=== PATIENT | male | born 1950 | race Caucasian/White ===

== ENCOUNTER 2020-05-09 02:43 | Inpatient (IN) ==
[2020-05-09 03:31] LABS: Basophils # (auto) 0.03 K/uL (0-0.2); Basophils % (auto) 0.3 %; Eosinophils % (auto) 1.1 %; Hematocrit (blood only) 42.9 % (42-52); Hemoglobin 15.3 g/dL (14.0-18.0); Immature Granulocytes # (auto) 0.03 K/uL (0.00-0.02); Immature Granulocytes % (auto) 0.3 %; Lymphocytes # (auto) 1.42 K/uL (1.2-3.4); Mean Corpuscular Hemoglobin 30.2 pg (25-34); Mean Corpuscular Hgb Conc 35.7 g/dL (32-36); Mean Corpuscular Volume 84.6 fL (80-100); Mean Platelet Volume 10.8 fL (7.4-10.4); Monocytes # (auto) 1.09 K/uL (0.11-0.59); Monocytes % (auto) 12.2 %; Neutrophils # (auto) 6.23 K/uL (1.4-6.5); Neutrophils % (auto) 70.1 %; Platelet Count 248 K/uL (130-400); RDW Coefficient of Variation 14.3 % (11.5-14.5); RDW Standard Deviation 44.1 fL (36.4-46.3); Red Blood Count 5.07 M/uL (4.7-6.1)
[2020-05-09] MEDS ORDERED: ONDANSETRON INJ 2 MG/ML 2 ML VIAL ONE (03:33)
[2020-05-09] MEDS ORDERED: fentaNYL citrate 100 MCG/2 ML VIAL ONE ×2 (03:33→03:42)
[2020-05-09 03:38] LABS: Alanine Aminotransferase 28 U/L (12-78); Albumin Level 4.2 gm/dl (3.4-5.0); Aspartate Aminotransferase 24 U/L (15-37); BUN Creatinine Ratio 13.7 (10-20); Blood Urea Nitrogen 15 mg/dl (7-18); Calcium 9.3 mg/dl (8.5-10.1); Carbon Dioxide 19 mmol/L (21-32); Chloride 105 mmol/L (98-107); Est GFR (African American) 77.3; Est GFR (Non-African American) 66.7; Glucose 141 mg/dl (70-99); Lipase 79 U/L (73-393); Potassium 3.8 mmol/L (3.5-5.1); Sodium 135 mmol/L (136-145)
[2020-05-09 03:41] LABS: Alkaline Phosphatase 117 U/L (45-117); Bilirubin,Total 0.9 mg/dl (0.2-1); Globulin 4.4 gm/dl (2.5-4.0); Total Protein 8.6 gm/dl (6.4-8.2)
[2020-05-09] MEDS ORDERED: MoRPHine SULFATE 4 MG/ML 1 ML CARP\\VIAL ONE (03:47)
[2020-05-09] MEDS ORDERED: MoRPHine SULFATE 4 MG/ML 1 ML CARP\\VIAL IV STA (03:57)
[2020-05-09] MEDS ORDERED: OPTIRAY 320 125ml IV ONE (03:57)
[2020-05-09] MEDS ORDERED: LORazepam 2 MG/4 ML VIAL ONE (04:20)
--- NOTE | 2020-05-09 05:07 | History & Physical Report ---
Date of Service May 09, 2020 Assessment & Plan (1) HTN (hypertension): Hypertensive urgency secondary to abdominal pain from AAA impending rupture on CT read Medication noncompliance chronic systolic heart failure secondary to ischemic cardiomyopathy (EF 40 to 45%, TTE 2000), patient euvolemic hx CAD status post stent hyperlipidemia as per records past tobacco abuse. Medical telemetry given blood pressure concerns Reinitiate beta-sydnie tx Analgesia Patient declines intervention for impending rupture of AAA. He desires to transition to home hospice once pain is controlled. Patient to transition to comfort measures if AAA ruptures inpatient. Social service RE discharge planning DVT prophylaxis. TEDS (SCDs contraindicated with PAD, pharmacologic anticoagulation contraindicated with AAA impending rupture) Full code Text document was generated using [employer] voice recognition software. It may contain grammatical or spelling errors. Kindly contact undersigned for clarification of any documentation item in question. History of Present Illness Chief Complaint: Abdominal pain Primary Care Provider: Anali Zhong History obtained from patient and records. Medical history significant for chronic systolic heart failure secondary to ischemic cardiomyopathy (EF 40 to 45%, TTE 2000), CAD status post stent, AAA, hyperlipidemia, medication noncompliance, past tobacco abuse. Patient evaluated by [facility] vascular surgeron last year for AAA. Elective surgery recommended at that time for AAA measuring about 5.6 cm as per patient. Patient declined surgery due to fear of complications from vascular procedure which he saw his mother suffer through. 1 week history of achy lower abdominal pain with some nausea, no emesis. No constipation or diarrhea. Patient drove himself to the ER with worsening discomfort. SBP upon arrival at the ER 180s. AAA concerning for impending rupture on initial CT read. Patient declined transfer to [facility] for surgical management pending discussion ER provider. Patient aware that he can anytime from precarious condition. 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 Allergies Allergy/AdvReac Type Severity Reaction Status Date / Time No Known Allergies Allergy Verified 10/22/02 17:44 Home Medications Home Medications Medication Instructions Recorded Confirmed Type No Known Home Medications 05/09/20 05/09/20 History Past Med/Surg History Social History Feels Safe at Home: Yes Review of Systems Review of Systems: As per HPI, all 10 systems reviewed, all other ROS negative Physical Exam Physical Exam: GENERAL: Slightly uncomfortable, pleasant no respiratory distress SKIN: Normal color, warm HEENT: [place] palpebral conjunctivae, no ptosis, dry buccal mucosa NECK : Supple, no tenderness CHEST : Decreased breath sounds , no tenderness HEART : RRR, no obvious murmurs ABDOMEN: Some distention, marked hypogastric tenderness EXTREMITIES : Minimal LE swelling, no LE tenderness, no other conspicuous deformities noted NEUROLOGIC : Coherent, no facial asymmetry, no other gross focality Results & Data Results & Data ([facility]) Vital Signs (Past 12 Hours) Vital Signs Temp Pulse Resp BP BP BP Pulse Ox 05/09/20 04:57 86 L 05/09/20 04:45 80 24 145/106 H 90 05/09/20 04:30 82 145/98 H 96 05/09/20 04:28 80 155/109 H 97 05/09/20 04:19 82 160/123 H 99 05/09/20 04:00 77 32 H 158/109 H 98 05/09/20 03:50 88 30 H 172/109 H 99 05/09/20 03:47 90 32 H 172/117 H 99 05/09/20 03:41 85 186/121 H 100 05/09/20 03:21 122/81 106/81 05/09/20 02:49 36.5 C 78 22 151/112 H 95 Laboratory Results Laboratory Results WBC 8.90 K/uL (4.8-10.8) 05/09/20 03:10 RBC 5.07 M/uL (4.7-6.1) 05/09/20 03:10 Hgb 15.3 g/dL (14.0-18.0) 05/09/20 03:10 Hct 42.9 % (42-52) 05/09/20 03:10 MCV 84.6 fL (80-100) 05/09/20 03:10 MCH 30.2 pg (25-34) 05/09/20 03:10 MCHC 35.7 g/dL (32-36) 05/09/20 03:10 RDW Std Deviation 44.1 fL (36.4-46.3) 05/09/20 03:10 RDW Coeff of Arcenio 14.3 % (11.5-14.5) 05/09/20 03:10 Plt Count 248 K/uL (130-400) 05/09/20 03:10 MPV 10.8 fL (7.4-10.4) H 05/09/20 03:10 Immature Gran % (Auto) 0.3 % 05/09/20 03:10 Neut % (Auto) 70.1 % 05/09/20 03:10 Lymph % (Auto) 16.0 % 05/09/20 03:10 Burke % (Auto) 12.2 % 05/09/20 03:10 Eos % (Auto) 1.1 % 05/09/20 03:10 Baso % (Auto) 0.3 % 05/09/20 03:10 Neut # (Auto) 6.23 K/uL (1.4-6.5) 05/09/20 03:10 Lymph # (Auto) 1.42 K/uL (1.2-3.4) 05/09/20 03:10 Burke # (Auto) 1.09 K/uL (0.11-0.59) H 05/09/20 03:10 Eos # (Auto) 0.10 K/uL (0-0.5) 05/09/20 03:10 Baso # (Auto) 0.03 K/uL (0-0.2) 05/09/20 03:10 Immature Gran # (Auto) 0.03 K/uL (0.00-0.02) H 05/09/20 03:10 Sodium 135 mmol/L (136-145) L 05/09/20 03:10 Potassium 3.8 mmol/L (3.5-5.1) 05/09/20 03:10 Chloride 105 mmol/L (98-107) 05/09/20 03:10 Carbon Dioxide 19 mmol/L (21-32) L 05/09/20 03:10 Anion Gap 11.0 (3-11) 05/09/20 03:10 BUN 15 mg/dl (7-18) 05/09/20 03:10 Creatinine 1.12 mg/dl (0.6-1.4) 05/09/20 03:10 Est Cr Clr Drug Dosing Not Reportable 05/09/20 03:10 Est GFR ( Amer) 77.3 05/09/20 03:10 Est GFR (Non-Af Amer) 66.7 05/09/20 03:10 BUN/Creatinine Ratio 13.7 (10-20) 05/09/20 03:10 Glucose 141 mg/dl (70-99) H 05/09/20 03:10 Calcium 9.3 mg/dl (8.5-10.1) 05/09/20 03:10 Total Bilirubin 0.9 mg/dl (0.2-1) 05/09/20 03:10 AST 24 U/L (15-37) 05/09/20 03:10 ALT 28 U/L (12-78) 05/09/20 03:10 Alkaline Phosphatase 117 U/L (45-117) 05/09/20 03:10 Total Protein 8.6 gm/dl (6.4-8.2) H 05/09/20 03:10 Albumin 4.2 gm/dl (3.4-5.0) 05/09/20 03:10 Globulin 4.4 gm/dl (2.5-4.0) H 05/09/20 03:10 Albumin/Globulin Ratio 1.0 (0.9-2) 05/09/20 03:10 Lipase 79 U/L (73-393) 05/09/20 03:[address] chest initial read: Thyroid nodule, ascending aorta measuring 5.4 cm, descending thoracic aorta caliber 2.9 cm. No central pulmonary embolism. Mild to moderate coronary calcification. Emphysema. Atelectasis. CT abdomen pelvis initial read: Abdominal aortic aneurysm measuring up to 9.8 cm with adjacent fat stranding concerning for impending rupture. No active extrava sation at this time. Aneurysmal dilatation of bilateral common iliac arteries and bilateral common femoral arteries. Solid organs are unremarkable. No bowel obstruction. EKG as per my interpretation rate 75, LAD, LAFB, RBBB, T wave flattening inferior leads
--- NOTE | 2020-05-09 05:45 | Emergency Department Note ---
Impression & Plan AAA (abdominal aortic aneurysm) ED Provider Note NAME: ARTHUR WEIGHT AGE: 69 SEX: M ARRIVES VIA: Walk-In INFORMANT: [Patient] ED PROVIDER(S): Sarah Pace DO CHIEF COMPLAINT: Severe abdominal pain PLAN: Disposition: Admitted to the [facility] service Condition: Critical MEDICAL DECISION MAKING: This is a 69-year-old male patient who presents to the emergency department with severe abdominal pain. Patient was diagnosed with a significantly enlarged abdominal aortic aneurysm with impending rupture. The patient chose to not pursue any further care and requested comfort measures only. The case was discussed with vascular surgery at [facility] in [place] and the patient was u ltimately admitted here to the [facility] service at [facility]. Triage Nursing notes reviewed and agree them [Prior medical records reviewed] from [facility] Vital Signs: reviewed and remarkable for hypertension Differential diagnosis: Aortic rupture, aortic dissection, small bowel obstruction, pancreatitis, ischemic bowel ER treatment provided: IV normal saline bolus IV Zofran IV fentanyl IV morphine IV Ativan Diagnostics interpreted by me: ECG: Normal sinus rhythm at a rate of 75. There is no ST segment elevation or signs of ischemia. There is no ectopy to be Cardiac Monitoring: Normal sinus rhythm at a rate of 75 Laboratory studies: [See below] Imaging studies: As per stat rad CT chest abdomen pelvis: Abdominal aortic aneurysm measuring up to 9.8 cm and there is adjacent fat stranding, concerning for impending rupture. No active extravasation at this t apol[place]. There is also aneurysmal dilatation of bilateral common iliac arteries and bilateral common femoral arteries. No free air or free fluid. No bowel obstruction. Solid organs are unremarkable. Multilevel degenerative changes of lumbar spine. CT a abdomen and pelvis: 1 cm left anterior inferior thyroid low-density nodule. Prominent caliber of the a sending aorta measuring 5.4 cm. Ascending thoracic aortic caliber 2.9 cm. Negative for central pulmonary embolism distal branches are less well opacified. Mild/moderate coronary artery calcification. Mild right greater than left upper lungs, superior segment left lower lung subpleural and centrilobular type emphysema. Mild right basilar atelectasis. Negative for any significant or suspicious lung nodule. Upper abdomen no focal finding negative for hypervascular hepatic lesion Consultation(s): Dr. Funk-vascular surgery [facility] Dr. Sandhu-emergency medicine [facility] Dr. Zamarripa-radiology [facility] HPI: 69/M arrives for evaluation of severe mid abdominal pain. The patient describes developing severe mid abdominal pain earlier in the day. He states that he stayed at home and try to tolerate the pain but it became unbearable and he drove himself to the emergency department. The patient has a known abdominal aneurysm that he chose not to have electively repaired. He states that he could not stand the mid abdominal pain that radiated through to his back anymore and he drove himself here for pain management. ROS: See above HPI for pertinent positives & negatives. A total of [10] systems reviewed and were otherwise negative. 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 Extraocular eye muscles are intact, and sclera are anicteric. Nose - moist nasal mucosa without discharge. Mouth - moist buccal mucosa. Oropharynx is nonerythematous and there is no tonsillar exudate or edema noted. Neck: Supple; no cervical lymphadenopathy or JVD Heart: Regular rate and rhythm. There is a normal S1 and S2 with no murmurs, clicks, or gallops appreciated. Lungs: Clear to auscultation bilaterally with no wheezes, rales, or rhonchi. Abdomen: The patient has an acute abdomen that is distended with an easily palpable abdominal aortic aneurysm in the mid abdomen. Extremities: No evidence of cyanosis, clubbing, or edema. There are easily palpable peripheral pulses. Skin: Pale, warm and diaphoretic with good turgor and no rashes. ED COURSE: Times/Reassessments: The patient was evaluated initially in room C9. Upon entering the room, the patient seemed to have an altered mental status and was unable to answer my questions. He was pale and diaphoretic and I immediately laid him back in the bed. Nursing staff was establishing an IV and attaching the patient to monitor. He had a liter of saline attached to both IV lines and he went emergently to CT scan. I was concerned for a ruptured aortic aneurysm and [facility] was placed on standby to provide emergent transport to a tertiary care center where he could have vascular repair. Initially, I discussed the case with Dr. Sandhu in the emergency department in [facility] and told him of my suspicions and he accepted the patient in transfer. I accompanied the patient to the CAT scanner where his IV line blew and emergency department staff were able to establish a second IV line so that they could have a contrasted CAT scan. The patient became more coherent in CAT scan and told staff that he did not wish to have any surgical interventions performed. When he returned to the emergency department, he went to room B1. I had a more meaningful conversation with the patient at that time. He told me that he did not wish to have surgical repair of this expanding abdominal aortic aneurysm because his mother had the same AAA repair which resulted in a stroke. He did not wish to live the same quality of life. I explained to the patient that he may not suffer a stroke following a AAA repair. At that time, the [facility] transfer center contacted me with Dr. Funk from vascular surgery. I discussed the case with him. He reviewed the risks and benefits of AAA repair and I reviewed those risks and benefits with the patient. Again, the patient made it abundantly clear that he would refuse any type of surgical repair of this AAA or transfer to [facility]. [facility] was canceled. in fact, he pulled his wallet out and showed me the business card of the vascular surgeon he saw in the [facility] in 2019. At that time he refused elective repair of his 5 x 6 cm AAA. He asked that I simply make him comfortable because he was having very severe abdominal and back pain. The patient was given multiple doses of IV morphine which did finally make him comfortable. The CT angiogram of the chest was initially read by stat rad but unfortunately the CT angiogram of the abdomen was not read by stat rad as it was missed. I co uld see that the aneurysm had enlarged from approximately 5-6 cm to at least 10 cm and that there was surrounding edema. I contacted Dr. Zamarripa from [facility] radiology and he gave me a preliminary read of expanding aneurysm with impending rupture. Stat rad then contacted me by phone and gave me the same read. I reviewed those findings with the admitting physician-Dr. Shah and the patient. The patient's blood pressure was significantly elevated and he remained uncomfortable. He was given IV Ativan which made him much more comfortable and brought the blood pressure down nicely. I offered to contact the patient's family multiple times throughout the patient's emergency department stay since the patient was in critical condition. He adamantly refused that we could contact his brother, [id number] or father. We finally convinced him to give us a phone number for his father in case he were to pass away. He stated that we could only contact the father if he were to . I discussed the case with Dr. Shah from [facility] service and he will evaluate the patient for admission and comfort care. I have personally spent greater than 90 minutes of critical care time in the direct management of this patient. This includes bedside care, interpretation of diagnostic studies, and testing, discussion with consultants, patient, and family members, and other required patient management activities. This 90 minutes is in excess of all separately billable procedures. Sarah Pace DO Past Med/Surg History Medical History (Updated 05/09/20 @ 14:34 by Sarah Pace DO) Aortic aneurysm Hyperlipidemia Surgical History (Updated 05/09/20 @ 08:36 by Carmen Eubanks RN) History of heart artery stent Social History Smoking Status: Former smoker Hx Alcohol Use: No Hx Substance Use: No Preferred Language: Sinhala Communication Ability: Effective Beliefs That Will Affect Care: None marital status: Single Current Living Situation: Alone Feels Safe at Home: Yes Safety Concerns: Feels Safe At This Time Allergies Allergies Allergy/AdvReac Type Severity Reaction Status Date / Time No Known Allergies Allergy Verified 10/22/02 17:44 Home Meds Home Medications Medication Instructions Recorded Confirmed No Known Home Medications 05/09/20 05/09/20 Results & Data (ED) Vital Signs Vital Signs - 24 hr 05/09/20 02:49 05/09/20 03:21 05/09/20 03:41 Temperature 36.5 C Temperature Source Oral Pulse Rate 78 85 Pulse Rate from SpO2 Sensor 85 Respiratory Rate 22 Blood Pressure 151/112 H 186/121 H Blood Pressure [Left Arm] 122/81 Blood Pressure [Right Arm] 106/81 Blood Pressure Mean 125 151 Blood Pressure Mean [Left Arm] 94 Blood Pressure Mean [Right Arm] 89 Blood Pressure Position Sitting Pulse Oximetry 95 100 Oxygen Delivery Method Room Air Oxygen Flow Rate Sepsis Recent Fever Within 48 Hours No Sepsis New/Unexplained Change in Mental Status No Sepsis Action Taken by Nursing No Action Required Oxygen Flow Rate - Titration Fraction of Inspired Oxygen - Titration 05/09/20 03:47 05/09/20 03:50 05/09/20 04:00 Temperature Temperature Source Pulse Rate 90 88 77 Pulse Rate from SpO2 Sensor 90 88 77 Respiratory Rate 32 H 30 H 32 H Blood Pressure 172/117 H 172/109 H 158/109 H Blood Pressure [Left Arm] Blood Pressure [Right Arm] Blood Pressure Mean 132 127 122 Blood Pressure Mean [Left Arm] Blood Pressure Mean [Right Arm] Blood Pressure Position Pulse Oximetry 99 99 98 Oxygen Delivery Method Room Air Room Air Room Air Oxygen Flow Rate Sepsis Recent Fever Within 48 Hours Sepsis New/Unexplained Change in Mental Status Sepsis Action Taken by Nursing Oxygen Flow Rate - Titration Fraction of Inspired Oxygen - Titration 05/09/20 04:19 05/09/20 04:28 05/09/20 04:30 Temperature Temperature Source Pulse Rate 82 80 82 Pulse Rate from SpO2 Sensor 81 81 75 Respiratory Rate Blood Pressure 160/123 H 155/109 H 145/98 H Blood Pressure [Left Arm] Blood Pressure [Right Arm] Blood Pressure Mean 130 117 112 Blood Pressure Mean [Left Arm] Blood Pressure Mean [Right Arm] Blood Pressure Position Pulse Oximetry 99 97 96 Oxygen Delivery Method Room Air Oxygen Flow Rate Sepsis Recent Fever Within 48 Hours Sepsis New/Unexplained Change in Mental Status Sepsis Action Taken by Nursing Oxygen Flow Rate - Titration Fraction of Inspired Oxygen - Titration 05/09/20 04:45 05/09/20 04:57 05/09/20 05:00 Temperature Temperature Source Pulse Rate 80 88 Pulse Rate from SpO2 Sensor 87 Respiratory Rate 24 17 Blood Pressure 145/106 H 128/97 Blood Pressure [Left Arm] Blood Pressure [Right Arm] Blood Pressure Mean 117 104 Blood Pressure Mean [Left Arm] Blood Pressure Mean [Right Arm] Blood Pressure Position Pulse Oximetry 90 86 L 99 Oxygen Delivery Method Room Air Nasal Cannula Oxygen Flow Rate 3 Sepsis Recent Fever Within 48 Hours Sepsis New/Unexplained Change in Mental Status Sepsis Action Taken by Nursing Oxygen Flow Rate - Titration 3 Fraction of Inspired Oxygen - Titration 97 Laboratory Data Result diagrams: 05/09/20 03:10 05/09/20 03:10 Lab Results 05/09/20 05/09/20 Range/Units 03:10 03:10 WBC 8.90 (4.8-10.8) K/uL RBC 5.07 (4.7-6.1) M/uL Hgb 15.3 (14.0-18.0) g/dL Hct 42.9 (42-52) % MCV 84.6 (80-100) fL MCH 30.2 (25-34) pg MCHC 35.7 (32-36) g/dL RDW Std Deviation 44.1 (36.4-46.3) fL RDW Coeff of Arcenio 14.3 (11.5-14.5) % Plt Count 248 (130-400) K/uL MPV 10.8 H (7.4-10.4) fL Immature Gran % (Auto) 0.3 % Neut % (Auto) 70.1 % Lymph % (Auto) 16.0 % Anderson % (Auto) 12.2 % Eos % (Auto) 1.1 % Baso % (Auto) 0.3 % Neut # (Auto) 6.23 (1.4-6.5) K/uL Lymph # (Auto) 1.42 (1.2-3.4) K/uL Anderson # (Auto) 1.09 H (0.11-0.59) K/uL Eos # (Auto) 0.10 (0-0.5) K/uL Baso # (Auto) 0.03 (0-0.2) K/uL Immature Gran # (Auto) 0.03 H (0.00-0.02) K/uL Sodium 135 L (136-145) mmol/L Potassium 3.8 (3.5-5.1) mmol/L Chloride 105 (98-107) mmol/L Carbon Dioxide 19 L (21-32) mmol/L Anion Gap 11.0 (3-11) BUN 15 (7-18) mg/dl Creatinine 1.12 (0.6-1.4) mg/dl Est Cr Clr Drug Dosing Not Reportable Est GFR ( Amer) 77.3 Est GFR (Non-Af Amer) 66.7 BUN/Creatinine Ratio 13.7 (10-20) Glucose 141 H (70-99) mg/dl Calcium 9.3 (8.5-10.1) mg/dl Total Bilirubin 0.9 (0.2-1) mg/dl AST 24 (15-37) U/L ALT 28 (12-78) U/L Alkaline Phosphatase 117 (45-117) U/L Total Protein 8.6 H (6.4-8.2) gm/dl Albumin 4.2 (3.4-5.0) gm/dl Globulin 4.4 H (2.5-4.0) gm/dl Albumin/Globulin Ratio 1.0 (0.9-2) Lipase 79 (73-393) U/L Administered Medications Parenteral Electrolytes (Normosol-R) 1,000 mls @ 40 mls/hr IV .Q24H STA Stop: 05/10/20 06:03 Last Admin: 05/09/20 07:20 Dose: 40 mls/hr Documented by: [id number] Metoprolol Tartrate (Metoprolol Tartrate 25 Mg Tab) 12.5 mg PO BID CY Stop: 06/08/20 05:13 Last Admin: 05/09/20 09:04 Dose: 12.5 mg Documented by: [id number] Morphine Sulfate (Morphine Sulfate 4 Mg/Ml 1 Ml Carp\Vial) 4 mg IV Q1H PRN PRN Reason: Pain Stop: 05/23/20 05:14 Last Admin: 05/09/20 12:21 Dose: 4 mg Documented by: [id number] Admin: 05/09/20 10:32 Dose: 4 mg Documented by: [id number] Admin: 05/09/20 09:03 Dose: 4 mg Documented by: [id number] Admin: 05/09/20 07:25 Dose: 4 mg Documented by: [id number] Admin: 05/09/20 06:17 Dose: 4 mg Documented by: [id number] Discontinued Medications Fentanyl Citrate (Fentanyl Citrate 100 Mcg/2 Ml Vial) Confirm Administered Dose 100 mcg .ROUTE .STK-MED ONE Stop: 05/09/20 03:34 Last Increment: 05/09/20 03:33 Dose: 50 mcg Documented by: [id number] Fentanyl Citrate (Fentanyl Citrate 100 Mcg/2 Ml Vial) Confirm Administered Dose 100 mcg .ROUTE .STK-MED ONE Stop: 05/09/20 03:43 Last Admin: 05/09/20 03:42 Dose: 100 mcg Documented by: [id number] Ioversol (Optiray 320 125ml) 118 ml IV ONCE ONE Stop: 05/09/20 03:58 Last Admin: 05/09/20 03:57 Dose: 1 ml Documented by: [id number] Lorazepam (Lorazepam 2 Mg/4 Ml Vial) Confirm Administered Dose 2 mg .ROUTE .STK-MED ONE Stop: 05/09/20 04:21 Last Admin: 05/09/20 04:26 Dose: 2 mg Documented by: [id number] Morphine Sulfate (Morphine Sulfate 4 Mg/Ml 1 Ml Carp\Vial) Confirm Administered Dose 4 mg .ROUTE .STK-MED ONE Stop: 05/09/20 03:48 Last Admin: 05/09/20 03:47 Dose: 4 mg Documented by: [id number] Morphine Sulfate (Morphine Sulfate 4 Mg/Ml 1 Ml Carp\Vial) 6 mg IV NOW STA Stop: 05/09/20 03:58 Last Admin: 05/09/20 04:01 Dose: 6 mg Documented by: [id number] Ondansetron HCl (Ondansetron Inj 2 Mg/Ml 2 Ml Vial) Confirm Administered Dose 4 mg .ROUTE .STK-MED ONE Stop: 05/09/20 03:34 Last Admin: 05/09/20 03:33 Dose: 4 mg Documented by: [id number] Discharge Plan Visit Data Chief Complaint: Abdominal Pain Stated Complaint: ABDOMINAL AND BACK PAIN ED Provider: Sarah Pace Discharge Problem: AAA (abdominal aortic aneurysm) Patient Disposition: Admitted As Inpatient Discharge Instructions Interventions: ED Discharge Assessment Last Done: 05/09/20 05:49 Discharge Problem: AAA (abdominal aortic aneurysm) Qualifiers: Presence of rupture: without rupture Qualified Code(s): I71.4 - Abdominal aortic aneurysm, without rupture
[2020-05-09] MEDS ORDERED: NORMOSOL-R 1,000 ML IV STA (06:04)
[2020-05-09] MEDS ORDERED: ACETAMINOPHEN 325 MG TAB PO PRN (06:09)
[2020-05-09] MEDS: MoRPHine SULFATE 4 MG/ML 1 ML CARP\\VIAL IV PRN ×7 (06:17→19:04)
--- NOTE | 2020-05-09 07:39 | CT Scan Report ---
CT ANGIOGRAPHY OF THE CHEST DISSECTION PROTOCOL CLINICAL HISTORY: Severe chest and abdominal pain. Evaluate for aortic dissection. COMPARISON STUDY: No previous studies for comparison. TECHNIQUE: Before and following the IV administration of 118 mL of Optiray-320, helical axial images of the chest were obtained. Maximal intensity projections and sagittal and coronal reformats were vi ewed on an independent 3D workstation. IV contrast was administered without complication. Automated exposure control was utilized for the study. A dose lowering technique was utilized adhering to the principles of ALARA. FINDINGS: No thoracic aortic dissection or intramural hematoma is noted. Aortic root is suboptimally assessed on this nondedicated exam but dilated, measuring approximately 4.6 cm in caliber at the lev el of the sinuses of Valsalva. Ascending aorta measures 4.8 cm at the level of the main pulmonary art krish. There is moderate plaque within the aortic arch. CTA of the abdomen and pelvis will be reported separately. No central pulmonary embolus is noted. There is moderate cardiomegaly and coronary artery calcification. 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 There is no pneu mothorax or pleural effusion. There is no consolidation. There is emphysema. There is no suspicious p ulmonary nodule. IMPRESSION: 1. No thoracic aortic dissection. No acute findings within the chest. 2. Aneurysmal dilatation of the ascending aorta, measuring 4.8 cm at the level of the main pulmonary artery. 3. Emphysema. 4.. 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 ACT 112: Negative or not required by law. Electronically signed by: Kiran Chowdhury M.D. 05/09/2020 7:38 AM
--- NOTE | 2020-05-09 08:16 | CT Scan Report ---
CT ANGIOGRAM OF THE ABDOMEN AND PELVIS CLINICAL HISTORY: Generalized abdominal pain. COMPARISON STUDY: No priors. TECHNIQUE: Following the IV administration of 118 cc of Optiray 320, CT angiogram of the abdomen and pelvis was performed from the lung bases the proximal femora. Images are reviewed in the axial, sagit barbara, and coronal planes. 3-D MIPS images are created and assessed. IV contrast was administered witho ut complication. A dose lowering technique was utilized adhering to the principles of ALARA. The exa mination is degraded by streak artifact from the arms which could not be elevated above the abdomen. CT DOSE: 2207.51 mGy.cm FINDINGS: Lower chest: The heart is normal in size and without pericardial effusion. The coronary arteries are densely calcified. Emphysematous change is noted at the lung bases. There is bibasilar scarring/atele ctasis. No airspace consolidation or pleural effusion is identified. There is mild aneurysmal dilatat ion of the the partially visualized ascending thoracic aorta which measures up to 4.7 cm. Liver: The contrast-enhanced liver is normal in size, contour, and attenuation. There is no intrahepa tic or ductal dilatation. The main portal veins appear patent. Gallbladder: Unremarkable. Spleen: Normal in size and attenuation noting heterogeneous arterial phase enhancement. Pancreas: Unremarkable. Adrenal glands: Adrenal glands appears slightly hyperemic. Kidneys: The contrast enhanced kidneys demonstrate mild cortical atrophy and are without hydronephros is. The kidneys enhance symmetrically. Abdominal aorta and iliac arteries: Advanced atherosclerotic changes seen throughout the abdominal ao rta and iliac arteries. There is a large infrarenal abdominal aortic aneurysm. This measures 9.0 x 9. 5 cm (AP times transverse). The aneurysm sac extends approximate 17 cm in craniocaudal length. Signif icant mural thrombus is noted within the aneurysm sac. The aneurysm originates just below the takeoff of the renal arteries. The patent luminal diameter measures a minimum of 4.3 cm. There is significan t stranding identified around the aneurysm sac that is highly concerning for impending rupture. No ac tive extravasation is identified at this time. No dissection is clearly seen. 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 A left common iliac artery aneurysm measures 4.1 cm and a right common iliac art krish aneurysm measures 3.5 cm. The common and external iliac arteries are patent bilaterally. Aneurysm of the right internal iliac artery measures 1.1 cm. The left internal iliac artery is thrombosed at its origin with distal reconstitution. There are bilateral partially thrombosed common iliac artery a neurysms measuring up to 2.6 cm on the left and 2.2 cm on the right. Major branches of the abdominal aorta: The celiac trunk and superior mesenteric artery are widely pat ent. There is thrombosis at the origin of the inferior mesenteric artery which is reconstituted via r etrograde flow. There is ectasia of the celiac trunk which measures up to 10 mm. Hepatic arterial adrianna nick is conventional. The splenic artery is patent. Single bilateral renal arteries are patent. Bowel: There are scattered colonic diverticula without CT evidence of acute diverticulitis. No bowel obstruction is seen. Rhfr-vu-kxsztyio fecal retention is noted throughout the colon. The appendix is well-visualized and normal. Peritoneum: There is no intraperitoneal free air or abdominal ascites. Lymphadenopathy: None. Pelvic viscera: The prostate gland is enlarged and heterogeneous measuring 6.[address] ter. There is median lobe hypertrophy. The bladder is decompressed and not well evaluated. Skeletal structures: The skeletal structures are osteopenic. Moderate to advanced lumbosacral spondyl osis is observed. No destructive bony lesions are seen. IMPRESSION: 1. There is a 9.0 x 9.5 cm aneurysm of the infrarenal abdominal aorta as detail above. 2. There is significant inflammatory stranding identified around the aneurysm sac that is highly conc erning for impending rupture. No active extravasation is seen at the time of examination.. 3. There are also aneurysms of the common iliac arteries, the right internal iliac artery, and both c ommon femoral arteries. 4. There is aneurysmal dilatation of the ascending thoracic aorta which measures up to 4.7 cm in diam eter. 5. There is thrombosis at the origin of the inferior mesenteric artery which is reconstituted via ret rograde flow. 6. Emphysema. 7. Additional findings as above. ACT 112: Negative or not required by law. Electronically signed by: Ritchie Schmid M.D. 05/09/2020 8:14 AM
[2020-05-09] MEDS: METOPROLOL TARTRATE 25 MG TAB PO SCH ×2 (09:04→20:32)
--- NOTE | 2020-05-09 12:36 | Hospitalist Progress Note ---
Date of Service May 09, 2020 Assessment & Plan (1) Aortic aneurysm: (2) Back pain: (3) Abdominal pain: Present on admission with worsening abdominal pain CTA abd/pelvis showed 9.0 x 9.5 cm aneurysm of the infrarenal abdominal aorta. Significant inflammatory stranding identified around the aneurysm sac that is highly concerning for impending rupture. There are also aneurysms of the common iliac arteries, the right internal iliac artery, and both common femoral arteries. There is aneurysmal dilatation of the ascending thoracic aorta which measures up to 4.7 cm in diameter. CTA chest showed n thoracic aortic dissection. No acute findings within the chest. Received morphine and fentanyl in the ER Continue to have back pain Refuses any heroic management or surgical intervention for the AAA repair He understands by refusing any AAA repair that the aneurysm can rupture and le ad to Pt would like to transition to hospice once his pain control Agreed to transition to comfort measures if AAA rupture rupture while in the hospital Will consult palliative for goals of care Case management notified Will continue pain control (4) HTN (hypertension): Hypertensive urgency BP on admission 186/121 Medication noncompliance not taking any medication Continue Metoprolol 12.5 mg BID Will keep BP well control 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 TEDS (SCDs contraindicated with PAD, pharmacologic anticoagulation contraindicated with AAA impending rupture) CODE STATUS DNR/DNI Admission and Anticipated Discharge Date Admission Date: May 09, 2020 Subjective Pt was seen and examined Lying in bed with no distress Pt said that his abdominal pain improves He said that he is having pain in his back He said that the pain med does not seem to help He said said that he lives alone and his friend and his family stopped talking to him because he is trying to teach them about the bible Pt was quoting scriptures in the bible during our interaction He continues to refuse any heroic management or repair of the AAA He said that he saw his mother suffer after she had aortic aneurysm surgery done due to stroke during the procedure He understands by refusing any aneurysm repair that the aneurysm can rupture and lead to Continues to refuse to transfer to [facility] to get evaluated for the AAA repair. Physical Exam Physical Exam: General- No acute distress Head- atraumatic Eyes- PERRL, EOMI, ENT- oropharynx clear Neck- supple, no JVD Lungs- No wheezing and crackles Heart- regular rhythm; no murmur Abdomen- normal bowel sounds, +tender with palpation Extremities- no calf tenderness Neuro- alert, oriented x 3; PERRL, EOMI; no facial palsy; no dysarthria Skin- warm & dry Results & Data Results & Data ([facility]) Vital Signs (Past 12 Hours) Vital Signs Temp Pulse Pulse Resp BP BP BP 05/09/20 11:21 36.7 C 83 20 136/84 05/09/20 11:16 67 05/09/20 07:45 36.8 C 59 L 20 120/80 05/09/20 05:45 67 17 108/77 05/09/20 05:30 70 17 110/79 05/09/20 05:15 71 18 114/80 05/09/20 05:00 88 17 128/97 05/09/20 04:57 05/09/20 04:45 80 24 145/106 H 05/09/20 04:30 82 145/98 H 05/09/20 04:28 80 155/109 H 05/09/20 04:19 82 160/123 H 05/09/20 04:00 77 32 H 158/109 H 05/09/20 03:50 88 30 H 172/109 H 05/09/20 03:47 90 32 H 172/117 H 05/09/20 03:41 85 186/121 H 05/09/20 03:21 122/81 106/81 05/09/20 02:49 36.5 C 78 22 151/112 H Pulse Ox 05/09/20 11:21 97 05/09/20 11:16 05/09/20 07:45 98 05/09/20 05:45 97 05/09/20 05:30 96 05/09/20 05:15 97 05/09/20 05:00 99 05/09/20 04:57 86 L 05/09/20 04:45 90 05/09/20 04:30 96 05/09/20 04:28 97 05/09/20 04:19 99 05/09/20 04:00 98 05/09/20 03:50 99 05/09/20 03:47 99 05/09/20 03:41 100 05/09/20 03:21 05/09/20 02:49 95
[2020-05-09] MEDS: HYDROmorphone INJ 1 MG/ML SYRINGE IV PRN ×3 (14:16→21:47)
--- NOTE | 2020-05-09 14:56 | Palliative Care Consultation ---
Date of Consultation May 09, 2020 Assessment & Plan (1) Palliative care encounter: Patient is a 69-year-old male with a past medical history significant for hypertension, HLD, CAD-status post stent, CHF-EF 40 to 45% on echo done in', and known AAA who presented to the emergency room with abdominal pain. Scan showed a AAA with dimensions of 9.0 X 9.5 X 17 cm-with mural thrombus and evidence of impending rupture, patient refused surgical intervention. Patient voiced desire for pain control and then to return home with hospice for comfort. Patient also stated he had not thought he was going to make it out of the hospital-expects to from a ruptured aortic aneurysm. -Patient reports abdominal pain has improved with IV morphine-patient has received 20 mg of IV morphine in the past 6 hours-patient is awake and alert, not sedated. He is now complaining of low back pain that improves when he stands, is severe when sitting and when lying down. Patient states he is used icy hot in the past which is helped with his low back pain. -Patient also has aneurysms in the bilateral iliac arteries, common iliac artery partially thrombosed within the aneurysm. -Scan showed densely calcified coronary arteries. -Patient is , no children. He has a father and his stepmother, his mother is . Patient would want his father and stepmother to make medical decisions if he were unable. -CODE STATUS is DNR -Patient has received 20 mg of morphine in the past 6 hours-with relief of the abdominal pain, however his low back pain appears to be worsening. -Asked nursing to give a dose of IV Dilaudid when due for pain meds-will return and assess response to Dilaudid versus the morphine. -Patient reported improved relief on second exam with IV Dilaudid-we will continue PRN pain meds and reassess patient in the a.m. -1 mg of IV Dilaudid is approximately equal to 7 mg of IV morphine or 13 mg of oxycodone-this can explain the improve relief, will monitor for worsening sedation, continue Myoflex and heat for low back pain. PPS 50% (2) AAA (abdominal aortic aneurysm): Presence of rupture: without rupture Qualified Code(s): I71.4 - Abdominal aortic aneurysm, without rupture (3) Back pain: Back pain laterality: bilateral Back pain location: low back pain Chronicity: unspecified Sciatica presence: without sciatica Qualified Code(s): M54.5 - Low back pain (4) HTN (hypertension): Hypertension type: essential hypertension Qualified Code(s): I10 - Essential (primary) hypertension History of Present Illness Requesting Physician: Dr Mancia Attending Physician: Eve Mancia MD History of Present Illness Chart reviewed, patient seen and examined, no family or friends at bedside. Patient is a 69-year-old male with a past medical history significant for hypertension, HLD, CAD-status post stent, CHF-EF 40 to 45% on echo done in, and known AAA who presented to the emergency room with abdominal pain. Scan showed a AAA with dimensions of 9.0 X 9.5 X 17 cm-with mural thrombus and evidence of impending rupture, patient refused surgical intervention. Patient voiced desire for pain control and then to return home with hospice for comfort. Patient also stated he had not thought he was going to make it out of the hospital-expects to from a ruptured aortic aneurysm. -Patient reports abdominal pain has improved with IV morphine-patient has received 20 mg of IV morphine in the past 6 hours-patient is awake and alert, not sedated. He is now complaining of low back pain that improves when he stands, is severe when sitting and when lying down. Patient states he is used icy hot in the past which is helped with his low back pain. -Patient also has aneurysms in the bilateral iliac arteries, common iliac artery partially thrombosed within the aneurysm. -Scan showed densely calcified coronary arteries. -Patient is , no children. He has a father and his stepmother, his mother is . Patient would want his father and stepmother to make medical decisions if he were unable. -CODE STATUS is DNR -Patient has received 20 mg of morphine in the past 6 hours-with relief of the abdominal pain, however his low back pain appears to be worsening. -Asked nursing to give a dose of IV Dilaudid when due for pain meds-will return and assess response to Dilaudid versus the morphine. -Patient reported improved relief on second exam with IV Dilaudid-we will continue PRN pain meds and reassess patient in the a.m. -1 mg of IV Dilaudid is approximately equal to 7 mg of IV morphine or 13 mg of oxycodone-this can explain the improve relief, will monitor for worsening sedation, continue Myoflex and heat for low back pain. - PPS 50% Allergies Allergy/AdvReac Type Severity Reaction Status Date / Time No Known Allergies Allergy Verified 10/22/02 17:44 Home Medications Home Medications Medication Instructions Recorded Confirmed Type No Known Home Medications 05/09/20 05/09/20 History Patient History Medical History Aortic aneurysm Hyperlipidemia Surgical History History of heart artery stent Social History Smoking Status: Former smoker Hx Alcohol Use: No Hx Substance Use: No Preferred Language: Italian Communication Ability: Effective Beliefs That Will Affect Care: None marital status: Single Current Living Situation: Alone Feels Safe at Home: Yes Safety Concerns: Feels Safe At This Time Review of Systems Review of Systems: Patient denies fever, chills, chest pain, shortness of breath Positive for abdominal pain which is controlled, positive for severe low back pain Physical Exam Physical Exam: PE: Patient awake and alert, in moderate pain due to low back pain-having to change position frequently HEENT: EOMI, hearing within normal limits Respirations: Clear breath sounds, unlabored CV: Regular rate, no edema Abdomen: Soft, no bruit appreciated Extremities: Full range of motion Neuro: Normal strength, alert and oriented x4 Results & Data ([facility]) Vital Signs (Past 12 Hours) Vital Signs Temp Pulse Pulse Resp BP BP BP 05/09/20 11:21 98.1 F 83 20 136/84 05/09/20 11:16 67 05/09/20 07:45 98.2 F 59 L 20 120/80 05/09/20 05:45 67 17 108/77 05/09/20 05:30 70 17 110/79 05/09/20 05:15 71 18 114/80 05/09/20 05:00 88 17 128/97 05/09/20 04:57 05/09/20 04:45 80 24 145/106 H 05/09/20 04:30 82 145/98 H 05/09/20 04:28 80 155/109 H 05/09/20 04:19 82 160/123 H 05/09/20 04:00 77 32 H 158/109 H 05/09/20 03:50 88 30 H 172/109 H 05/09/20 03:47 90 32 H 172/117 H 05/09/20 03:41 85 186/121 H 05/09/20 03:21 122/81 106/81 Pulse Ox 05/09/20 11:21 97 05/09/20 11:16 05/09/20 07:45 98 05/09/20 05:45 97 05/09/20 05:30 96 05/09/20 05:15 97 05/09/20 05:00 99 05/09/20 04:57 86 L 05/09/20 04:45 90 05/09/20 04:30 96 05/09/20 04:28 97 05/09/20 04:19 99 05/09/20 04:00 98 05/09/20 03:50 99 05/09/20 03:47 99 05/09/20 03:41 100 05/09/20 03:21 PG Care Time/CCT Total # of Minutes Spent Total Time Spent with Patient: Total time spent 70 minutes with greater than 50% of the time spent at bedside assessing patient's pain control as well as discussing goals of care Coding Level of Care Code 08042 Inpt Consult Level 3 Diagnoses Palliative care encounter Z51.5 AAA (abdominal aortic aneurysm) I71.4 Presence of rupture: without rupture Back pain M54.5 Back pain laterality: bilateral Back pain location: low back pain Chronicity: unspecified Sciatica presence: without sciatica HTN (hypertension) I10 Hypertension type: essential hypertension Time Spent (min) 70
[2020-05-09] MEDS: TROLAMINE SALICYLATE 10% CRM 255 APPLN/85 GM TUBE EXT PRN (17:49)
[2020-05-09] MEDS: oxyCODONE HCL IR 5 MG TAB (IMMEDIATE RELEASE) PO PRN (20:31)
[2020-05-10] MEDS: PROMETHAZINE HCL 12.5 MG in SODIUM CHLORIDE 0.9% 50 ML IV PRN ×2 (00:08→14:41)
[2020-05-10] MEDS: oxyCODONE HCL IR 5 MG TAB (IMMEDIATE RELEASE) PO PRN ×2 (00:13→08:22)
[2020-05-10 00:44] LABS: Appearance Urine Clear (Clear); Bacteria Urine Automated Negative (Negative); Blood Urine 2+ (Negative); Color Urine Orange; Epithelial Cell Urine Auto >30 /lpf (0-5); Glucose Urine UA Negative (Negative); Ketones Urine Negative (Negative); Leukocyte Esterase Urine Trace (Negative); Nitrite Urine Positive (Negative); Protein Urine 2+ (Negative); RBC Urine Automated 0-4 /hpf (0-4); Specific Gravity Urine > 1.045 (1.000-1.030); Urobilinogen Urine Negative (Negative)
[2020-05-10 01:02] LABS: Bilirubin Urine Negative (Negative); Ictotest Urine Negative (Negative)
[2020-05-10] MEDS: HYDROmorphone INJ 1 MG/ML SYRINGE IV PRN ×5 (02:22→21:57)
--- NOTE | 2020-05-10 06:53 | Electrocardiogram Report ---
Test Reason : Blood Pressure : / mmHG Vent. Rate : 075 BPM Atrial Rate : 075 BPM P-R Int : 174 ms QRS Dur : 102 ms QT Int : 402 ms P-R-T Axes : 043 -74 038 degrees QTc Int : 448 ms Normal sinus rhythm Possible Left atrial enlargement Left axis deviation Inferior-posterior infarct (cited on or before 08-SEP-1998) Abnormal ECG When compared with ECG of 08-SEP-1998 03:52, No significant change was found Confirmed by Trenton Hernandez ([id number]) on 05/10/2020 6:52:40 AM Referred By: REFERRED SELF Confirmed By:Trenton Hernandez
[2020-05-10] MEDS: METOPROLOL TARTRATE 25 MG TAB PO SCH ×2 (08:23→18:52)
[2020-05-10] MEDS: MoRPHine SULFATE 4 MG/ML 1 ML CARP\\VIAL IV PRN ×3 (11:29→18:57)
[2020-05-10] MEDS: LORazepam 0.5 MG/1 ML VIAL IV PRN (11:36)
[2020-05-10] MEDS ORDERED: HYDROmorphone INJ 1 MG/ML SYRINGE IV PRN (11:53)
[2020-05-10] MEDS: LIDOCAINE 5% 1 PATCH TD SCH (13:57)
--- NOTE | 2020-05-10 14:31 | Palliative Care Progress Note ---
Date of Service May 10, 2020 Assessment & Plan (1) Palliative care encounter: Patient is a 69-year-old male with a past medical history significant for hypertension, HLD, CAD-status post stent, CHF-EF 40 to 45% on echo done in', and known AAA who presented to the emergency room with abdominal pain. Scan showed a AAA with dimensions of 9.0 X 9.5 X 17 cm-with mural thrombus and evidence of impending rupture, patient refused surgical intervention. Patient voiced desire for pain control and then to return home with hospice for comfort. Patient also stated he had not thought he was going to make it out of the hospital-expects to from a ruptured aortic aneurysm. -Patient reports abdominal pain has improved with PRN pain medications he has received 16 mg of IV morphine, 6 mg of IV Dilaudid in the past 24 hours +30 mg of oxycodone in the past 12 hours. On second exam patient was awake and alert, minimal sedation, complaining of low back pain that improves when he stands, is severe when sitting and when lying down. Patient using K pad for low back pain -Patient also has aneurysms in the bilateral iliac arteries, common iliac artery partially thrombosed within the aneurysm. -Scan showed densely calcified coronary arteries. -Patient is , no children. He has a father and his stepmother, his mother is . Patient would want his father and stepmother to make medical decisions if he were unable. -CODE STATUS is DNR -Will start OxyContin at 60 mg every 12 hours-we will likely need to titrate, continue current PRN medications. -Constipation-may exacerbate abdominal pain, will give dose of milk of mag. -Will continue to follow and assist with pain management, if we can get patient's pain under adequate control, may be able to get him home with hospice. PPS 50% (2) AAA (abdominal aortic aneurysm): (3) Back pain: (4) HTN (hypertension): Admission and Anticipated Discharge Date Admission Date: May 09, 2020 Subjective Patient asleep on initial visit, returned later in the afternoon-patient awake. Still having significant lower back pain as well as some mild abdominal pain. He required 6 doses of IV Dilaudid in 24 hours, 4 doses of IV morphine and 1 dose of Ativan. He received oxycodone 10 mg x 3 in the past 12 hours. Calculated patient's total opioid requirements -morphine equivalent is approximately 236 mg in 24 hours. Discussed with attending physician-we will start cocci Contin at 60 mg every 12, continue PRN medications -adjust OxyContin dose as needed for comfort. If patient remains too sedated-we will consider starting methadone to improve cognitive function as patient lives alone. Patient reports he has not moved his bowels since prior to admission-we will give a dose of milk of mag today. Patient running low-grade temp earlier today at 100.8, last set of vitals show a temp of 98.2. Patient also utilizing K pad for low back pain. Review of Systems Review of Systems: Patient denies fever, chills, chest pain, shortness of breath Positive for mild abdominal pain and severe lower back pain, positive nausea-may be due to pain meds. Physical Exam Physical Exam: PE: Patient uncomfortable when awake primarily due to low back pain-improves somewhat with change in position HEENT: EOMI, hearing within normal limits Respiratory: Clear breath sounds, unlabored CV: Regular rate, no edema Abdomen: Nontender to light palpation Extremities: Full range of motion Neuro: Alert and oriented x4 Results & Data ([facility]) Vital Signs (Past 12 Hours) Vital Signs Temp Pulse Pulse Resp BP Pulse Ox 05/10/20 13:55 98.2 F 05/10/20 11:16 100.8 F H 90 18 115/73 92 05/10/20 06:55 99.1 F 76 20 98/59 L 96 05/10/20 06:20 71 05/10/20 03:23 99.5 F 70 18 97/57 L 91 PG Care Time/CCT Total # of Minutes Spent Total Time Spent with Patient: Total time spent 35 minutes with greater than 50% of the time spent at bedside assessing pain control and developing a plan with patient and attending physician. Coding Level of Care Code 01463 Subseq Hosp Care Lvl 3 Diagnoses Palliative care encounter Z51.5 AAA (abdominal aortic aneurysm) I71.4 Presence of rupture: without rupture Back pain M54.5 Back pain location: low back pain Chronicity: unspecified Back pain laterality: bilateral Sciatica presence: without sciatica HTN (hypertension) I10 Hypertension type: essential hypertension Time Spent (min) 35 (1) AAA (abdominal aortic aneurysm) Presence of rupture: without rupture Qualified Code(s): I71.4 - Abdominal aortic aneurysm, without rupture (2) Back pain Back pain location: low back pain Chronicity: unspecified Back pain laterality: bilateral Sciatica presence: without sciatica Qualified Code(s): M54.5 - Low back pain (3) HTN (hypertension) Hypertension type: essential hypertension Qualified Code(s): I10 - Essential (primary) hypertension
--- NOTE | 2020-05-10 14:49 | Hospitalist Progress Note ---
Date of Service May 10, 2020 Assessment & Plan (1) Aortic aneurysm: (2) Back pain: (3) Abdominal pain: Present on admission with worsening abdominal pain CTA abd/pelvis showed 9.0 x 9.5 cm aneurysm of the infrarenal abdominal aorta. Significant inflammatory stranding identified around the aneurysm sac that is highly concerning for impending rupture. There are also aneurysms of the common iliac arteries, the right internal iliac artery, and both common femoral arteries. There is aneurysmal dilatation of the ascending thoracic aorta which measures up to 4.7 cm in diameter. CTA chest showed n thoracic aortic dissection. No acute findings within the chest. Received morphine and fentanyl in the ER Continue to have back pain Refuses any heroic management or surgical intervention for the AAA repair He understands by refusing any AAA repair that the aneurysm can rupture and lead to Pt would like to transition to hospice once his pain control Agreed to transition to comfort measures if AAA rupture rupture while in the hospital palliative care on board Case discussed with Dr. 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 TEDS (SCDs contraindicated with PAD, pharmacologic anticoagulation contraindicated with AAA impending rupture) CODE STATUS DNR/DNI Admission and Anticipated Discharge Date Admission Date: May 09, 2020 Subjective Pt was seen and examined Upon entering the home, pt was in the bathroom cleaning He walked and sat at the edge of the bed Pt said that his pain is a little better because he just received IV dilaudid Pt had a temp 38.2 early today Denies any chest pain, palpitation, dizziness and SOB Physical Exam Physical Exam: General- No acute distress Head- atraumatic Eyes- PERRL, EOMI, ENT- oropharynx clear Neck- supple, no JVD Lungs- No wheezing and crackles Heart- regular rhythm; no murmur Abdomen- normal bowel sounds, +tender with palpation Extremities- no calf tenderness Neuro- alert, oriented x 3; PERRL, EOMI; no facial palsy; no dysarthria Skin- warm & dry Results & Data Results & Data ([facility]) Vital Signs (Past 12 Hours) Vital Signs Temp Pulse Pulse Resp BP Pulse Ox 05/10/20 13:55 36.8 C 05/10/20 11:16 38.2 C H 90 18 115/73 92 05/10/20 06:55 37.3 C 76 20 98/59 L 96 05/10/20 06:20 71 05/10/20 03:23 37.5 C 70 18 97/57 L 91 (1) Back pain Back pain location: low back pain Chronicity: unspecified Back pain laterali ty: bilateral Sciatica presence: without sciatica Qualified Code(s): M54.5 - Low back pain (2) HTN (hypertension) Hypertension type: essential hypertension Qualified Code(s): I10 - Essential (primary) hypertension
[2020-05-10] MEDS ORDERED: bisacodyL 5 MG TABEC PO PRN (15:15)
[2020-05-10] MEDS: MAGNESIUM HYDROXIDE SUSP 30 ML UDC PO SCH (16:19)
[2020-05-10] MEDS: oxyCODONE HCL 20 MG TABCR (OxyCONTIN) PO SCH (16:19)
[2020-05-10] MEDS ORDERED: CEFEPIME CONSULT ACTIVE PRN (19:47)
--- NOTE | 2020-05-10 19:48 | Communication Note ---
Date of Service: May 10, 2020 Patient with tachycardia and fever spikes. UA (05/09) WBC est, nitrite positive AP Sepsis, complicated UTI Cultures (following AM provider note), check lactic acid Recollect UA (sample from 05/09 admission discarded without urine CS study) IV Cefepime for now Will relay to AM provider.
[2020-05-10] MEDS ORDERED: SODIUM CHLORIDE 0.9% 500 ML IV ONE (19:49)
[2020-05-10] MEDS ORDERED: CEFEPIME 2,000 MG/20 ML VIAL IV STA (19:53)
[2020-05-10] MEDS ORDERED: MAGNESIUM SULFATE / D5W 1 GM/100 ML BAG IV ONE (20:41)
[2020-05-10] MEDS ORDERED: POLYETHYLENE (MIRALAX) 17 GM PACK PO PRN (20:45)
[2020-05-10] MEDS ORDERED: POTASSIUM CHLORIDE CRTAB 20 MEQ TABCR PO ONE (21:15)
[2020-05-10 21:31] LABS: Basophils # (auto) 0.02 K/uL (0-0.2); Basophils % (auto) 0.3 %; Eosinophils # (auto) 0.01 K/uL (0-0.5); Eosinophils % (auto) 0.1 %; Hematocrit (blood only) 35.5 % (42-52); Hemoglobin 11.8 g/dL (14.0-18.0); Immature Granulocytes # (auto) 0.02 K/uL (0.00-0.02); Immature Granulocytes % (auto) 0.3 %; Lymphocytes # (auto) 0.75 K/uL (1.2-3.4); Lymphocytes % (auto) 9.5 %; Mean Corpuscular Hemoglobin 28.9 pg (25-34); Mean Corpuscular Hgb Conc 33.2 g/dL (32-36); Mean Platelet Volume 10.8 fL (7.4-10.4); Monocytes # (auto) 1.21 K/uL (0.11-0.59); Monocytes % (auto) 15.4 %; Neutrophils # (auto) 5.86 K/uL (1.4-6.5); Neutrophils % (auto) 74.4 %; Platelet Count 164 K/uL (130-400); RDW Coefficient of Variation 14.6 % (11.5-14.5); RDW Standard Deviation 46.9 fL (36.4-46.3); Red Blood Count 4.08 M/uL (4.7-6.1); White Blood Count 7.87 K/uL (4.8-10.8)
[2020-05-10 21:45] LABS: BUN Creatinine Ratio 15.9 (10-20); Calcium 8.2 mg/dl (8.5-10.1); Creatinine Clr Calc Pharmacy 61.9 ml/min; Est GFR (African American) 63.9; Est GFR (Non-African American) 55.2; Magnesium 2.1 mg/dl (1.8-2.4); Potassium 3.4 mmol/L (3.5-5.1)
[2020-05-10] MEDS: DOCUSATE SODIUM/SENNA 50/8.6MG TAB PO SCH (21:52)
[2020-05-10] MEDS ORDERED: POTASSIUM CHLORIDE 40 MEQ in SODIUM CHLORIDE 0.9% 1000ML 1,000 ML IV ONE (21:55)
[2020-05-11] MEDS: HYDROmorphone INJ 1 MG/ML SYRINGE IV PRN ×4 (02:20→17:35)
[2020-05-11] MEDS: oxyCODONE HCL 20 MG TABCR (OxyCONTIN) PO SCH ×3 (03:31→17:13)
[2020-05-11 03:39] LABS: Appearance Urine Cloudy (Clear); Blood Urine 1+ (Negative); Color Urine Dark Yellow; Epithelial Cell Urine Auto >30 /lpf (0-5); Glucose Urine UA Negative (Negative); Ketones Urine Trace (Negative); Leukocyte Esterase Urine Negative (Negative); Nitrite Urine Negative (Negative); Protein Urine 2+ (Negative); Specific Gravity Urine 1.028 (1.000-1.030); Urobilinogen Urine Negative (Negative)
[2020-05-11 04:03] LABS: Bilirubin Urine Negative (Negative); Ictotest Urine Negative (Negative)
[2020-05-11 04:05] LABS: Cast Urine Automated >30 /lpf (0-5); Granular Casts Urine >30 /lpf (0)
[2020-05-11 04:06] LABS: Mucus Urine Present (None Prsent)
[2020-05-11 04:07] LABS: Bacteria Urine Automated 1+ (Negative)
[2020-05-11] MEDS: oxyCODONE HCL IR 5 MG TAB (IMMEDIATE RELEASE) PO PRN (06:18)
[2020-05-11] MEDS: TROLAMINE SALICYLATE 10% CRM 255 APPLN/85 GM TUBE EXT PRN (06:19)
[2020-05-11 06:35] LABS: Hemoglobin 12.7 g/dL (14.0-18.0); Mean Corpuscular Hemoglobin 28.7 pg (25-34); Mean Corpuscular Hgb Conc 32.6 g/dL (32-36); Mean Platelet Volume 11.3 fL (7.4-10.4); Platelet Count 171 K/uL (130-400); RDW Coefficient of Variation 14.8 % (11.5-14.5); RDW Standard Deviation 47.8 fL (36.4-46.3); Red Blood Count 4.43 M/uL (4.7-6.1); White Blood Count 8.61 K/uL (4.8-10.8)
[2020-05-11 07:03] LABS: BUN Creatinine Ratio 15.8 (10-20); Calcium 8.4 mg/dl (8.5-10.1); Creatinine Clr Calc Pharmacy 65.9 ml/min; Est GFR (Non-African American) 59.5; Potassium 3.8 mmol/L (3.5-5.1)
[2020-05-11] MEDS: MAGNESIUM HYDROXIDE SUSP 30 ML UDC PO SCH (07:56)
[2020-05-11] MEDS: DOCUSATE SODIUM/SENNA 50/8.6MG TAB PO SCH ×2 (07:56→20:06)
[2020-05-11] MEDS: METOPROLOL TARTRATE 25 MG TAB PO SCH ×2 (07:56→20:06)
[2020-05-11] MEDS: LIDOCAINE 5% 1 PATCH TD SCH (07:57)
[2020-05-11] MEDS ORDERED: CEFEPIME 1,000 MG in SYRINGE 0 ML IV SCH (08:00)
[2020-05-11] MEDS: MoRPHine SULFATE 4 MG/ML 1 ML CARP\\VIAL IV PRN ×2 (09:11→14:22)
--- NOTE | 2020-05-11 09:24 | Palliative Care Progress Note ---
Date of Service May 11, 2020 Assessment & Plan (1) Palliative care encounter: -Patient lying in his bed, then moved to sitting and standing position. No family or friends at the bedside. -Patient has received Dilaudid 1mg FOUR times over the past 24 hours, Morphine 4 mg IV THREE times over the past 24 hours, and ONE dose of PRN Oxycodone. -Patient stated that his abdominal pain is not present, but his back pain is excruciating 06/18. -Unsure if this pain is musculoskeletal. -Ordered Voltaren gel 4 grams TID topical and also increased his scheduled Oxycontin to 60 mg po TID as his IV use has been decreasing. Discussed with Dr. Clark, may have a goal to transition and start Methadone. -Goal is to discharge to home. Have concerns with him not having support with his condition. That being said, he is fully independent otherwise. Will discuss with ethics committee to ensure appropriate for discharge to home. -Patient is , no children. He has a father and his stepmother, his mother is . Patient would want his father and stepmother to make medical decisions if he were unable. -Will continue to follow and assist with pain management, if we can get patient's pain under adequate control, may be able to get him home with hospice. PPS 50% (2) AAA (abdominal aortic aneurysm): (3) Back pain: (4) HTN (hypertension): Admission and Anticipated Discharge Date Admission Date: May 10, 2020 Subjective Pt was sitting in his hospital bed, complaining of back pain Denies any chest pain, palpitation, dizziness and SOB Please see A/P for further details Review of Systems Review of Systems: All systems reviewed & are unremarkable except as noted in HPI & below Physical Exam Constitutional: WD/WN, vitals as above well developed and cooperative Respiratory: normal respiratory effort, lungs clear to auscultation Cardiovascular: Rate/Rhythm: regular rate, regular rhythm and + tachycardic Heart Sounds: normal S1, normal S2 and + murmur Extremities: normal capillary refill; no edema Gastrointestinal (Abdomen): normal bowel sounds, soft, nontender, no hepatosplenomegaly Skin: no rashes, warm and dry + mottling (some insufficiencies noted ) Psychiatric: A+Ox3, euthymic affect Results & Data ([facility]) Vital Signs (Past 12 Hours) Vital Signs Temp Pulse Pulse Resp BP BP Pulse Ox 05/11/20 08:02 36.9 C 76 18 126/74 97 05/11/20 07:21 90 05/11/20 03:45 36.6 C 88 18 119/76 94 05/11/20 00:00 76 05/10/20 23:02 37.3 C 78 20 108/71 92 PG Care Time/CCT Total # of Minutes Spent Total Time Spent with Patient: Total time spent is greater than 50% in coordination of care (as documented) at patient's floor/unit and/or counseling patient: 45 Coding Level of Care Code 60009 Subseq Hosp Care Lvl 3 Diagnoses Palliative care encounter Z51.5 AAA (abdominal aortic aneurysm) I71.4 Presence of rupture: without rupture Back pain M54.5 Back pain location: low back pain Chronicity: unspecified Back pain laterality: bilateral Sciatica presence: without sciatica HTN (hypertension) I10 Hypertension type: essential hypertension Time Spent (min) 45 Time Spent Midlevel Total time spent 45 minutes with > 50% of that time spent assessing the patient, collaborating with the palliative MDOD and IDT (1) AAA (abdominal aortic aneurysm) Presence of rupture: without rupture Qualified Code(s): I71.4 - Abdominal aortic aneurysm, without rupture (2) Back pain Back pain location: low back pain Chronicity: unspecified Back pain laterality: bilateral Sciatica presence: without sciatica Qualified Code(s): M54.5 - Low back pain (3) HTN (hypertension) Hypertension type: essential hypertension Qualified Code(s): I10 - Essential (primary) hypertension
[2020-05-11] MEDS: DICLOFENAC SOD 1% GEL 100 GM TUBE EXT SCH ×2 (12:32→20:06)
[2020-05-11] MEDS ORDERED: NALOXONE HCL 0.4 MG/1 ML VIAL/CARP IV PRN ×3 (17:50→18:02)
[2020-05-11] MEDS ORDERED: SODIUM CHLORIDE 0.9% 1000ML 1,000 ML IV SCH ×3 (18:00→18:15)
[2020-05-11] MEDS ORDERED: HYDROmorphone Bolus from PCA IV STA (18:02)
--- NOTE | 2020-05-11 18:05 | Hospitalist Progress Note ---
Date of Service May 11, 2020 Assessment & Plan (1) Aortic aneurysm: (2) Back pain: (3) Abdominal pain: Severe intractable abdominal pain: Due to large abdominal aortic aneurysm Admitted with worsening abdominal pain CTA abd/pelvis showed 9.0 x 9.5 cm aneurysm of the infrarenal abdominal aorta. Significant inflammatory stranding identified around the aneurysm sac that is highly concerning for impending rupture. There are also aneurysms of the common iliac arteries, the right internal iliac artery, and both common femoral arteries. There is aneurysmal dilatation of the ascending thoracic aorta which measures up to 4.7 cm in diameter. CTA chest showed thoracic aortic dissection. Per note by previous hospitalist: Refuses any heroic management or surgical intervention for the AAA repair He understands by refusing any AAA repair that the aneurysm can rupture and lead to Pt would like to transition to hospice once his pain control Agreed to transition to comfort measures if AAA rupture rupture while in the hospital palliative care on board Patient was ordered p.o. 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 TEDS (SCDs contraindicated with PAD, pharmacologic anticoagulation contraindicated with AAA impending rupture) CODE STATUS DNR/DNI Disposition Continue inpatient palliative care, Overall very poor prognosis, patient can during this hospital stay Continue pain control, and discuss with patient on transition to comfort care only Admission and Anticipated Discharge Date Admission Date: May 10, 2020 Subjective Patient seen at bedside Noted to be in severe distress from abdominal pain Sitting at edge of the bed , leaning forward, complains of excruciating mid abdominal pain radiating to back Received p.o. oxycodone earlier, had no improvement of symptoms PRN IV Dilaudid only helping for atransient time Review of Systems Review of Systems: All systems reviewed & are unremarkable except as noted in HPI & below Gastrointestinal: + abdominal pain (Severe midabdominal pain radiating to back) Physical Exam Constitutional: + acute distress (Due to abdominal pain) and + ill appearing Eyes: PERRL, conjunctivae normal, anicteric sclerae ENMT: external ear and nose normal, oropharynx normal Neck: trachea midline, no thyromegaly Respiratory: normal respiratory effort, lungs clear to auscultation Cardiovascular: RRR, no murmur, no edema Gastrointestinal (Abdomen): Percussion/Palpation: + abdomen tender and abdomen soft Musculoskeletal: no cyanosis or clubbing, extremities motor strength 5/5 Skin: no rashes, warm and dry Neurologic: PERRL, EOMI, accommodation nl, no face palsy, no dysarthria Psychiatric: A+Ox3, euthymic affect Results & Data Results & Data ([facility]) Vital Signs (Past 12 Hours) Vital Signs Temp Pulse Pulse Resp BP BP Pulse Ox 05/11/20 15:40 36.8 C 102 H 18 112/71 93 05/11/20 15:09 95 H 05/11/20 11:14 37.0 C 76 18 131/80 92 05/11/20 08:02 36.9 C 76 18 126/74 97 05/11/20 07:21 90 (1) Back pain Back pain location: low back pain Chronicity: unspecified Back pain laterality: bilateral Sciatica presence: without sciatica Qualified Code(s): M54.5 - Low back pain (2) HTN (hypertension) Hypertension type: essential hypertension Qualified Code(s): I10 - Essential (primary) hypertension
--- NOTE | 2020-05-11 18:32 | Communication Note ---
Date of Service: May 11, [address] images reviewed, high risk for rupture of aortic aneurysm Specially as patient is complaining of worsening/severe abdominal pain: Concern for possible dissection Patient is at terminal/end-stage status Ordered for comfort care only IV Dilaudid FIRST COAT SANDER ordered If pain remains intractable, can be changed to IV morphine FIRST COAT SANDER for pain relief/comfort Ellie Cole MD
[2020-05-11] MEDS: HYDROmorphone PCA 30 MG/30 ML IV PRN (18:56)
[2020-05-12] MEDS: MAGNESIUM HYDROXIDE SUSP 30 ML UDC PO SCH ×2 (08:39→11:52)
[2020-05-12] MEDS: DOCUSATE SODIUM/SENNA 50/8.6MG TAB PO SCH ×2 (08:39→11:52)
[2020-05-12] MEDS: LIDOCAINE 5% 1 PATCH TD SCH (08:40)
[2020-05-12] MEDS: DICLOFENAC SOD 1% GEL 100 GM TUBE EXT SCH ×2 (08:40→11:52)
[2020-05-12] MEDS: METOPROLOL TARTRATE 25 MG TAB PO SCH (08:41)
[2020-05-12] MEDS: PROMETHAZINE HCL 12.5 MG in SODIUM CHLORIDE 0.9% 50 ML IV PRN (09:08)
[2020-05-12] MEDS: LORazepam 0.5 MG/1 ML VIAL IV PRN (12:01)
--- NOTE | 2020-05-12 13:03 | Communication Note ---
Date of Service: May 12, 2020 had an uneventful night started on IV Dilaudid CABLE TESTERS HELPER yesterday still having pain after CABLE TESTERS HELPER IV dilaudid bolus dose current setting 0.5 mg cont 0.2 mg bolus with each button push /lockout time [address] Arauz IV Dilaudid dose can be increased to 1 mg /keeping the same q15 mins lock out apolonia and baseline 0.5 mg/hr cont if pain is worsened and pt can not use the CABLE TESTERS HELPER pump will be transitioned to IV morphine gtt , titrate to comfort very poor prognosis on comfort care pt will be transitioned to in patient Hospice Ellie Cole MD
--- NOTE | 2020-05-12 13:06 | Discharge Summary ---
Date of Service May 12, 2020 Admission HPI Per Admitting Provider History obtained from patient and records. Medical history significant for chronic systolic heart failure secondary to ischemic cardiomyopathy (EF 40 to 45%, TTE 2000), CAD status post stent, AAA, hyperlipidemia, medication noncompliance, past tobacco abuse. Patient [facility] by [facility] vascular surgeron last year for AAA. Elective surgery recommended at that time for AAA measuring about 5.6 cm as per patient. Patient declined surgery due to fear of complications from vascular procedure which he saw his mother suffer through. 1 week history of achy lower abdominal pain with some nausea, no emesis. No constipation or diarrhea. Patient drove himself to the ER with worsening discomfort. SBP upon arrival at the ER 180s. AAA concerning for impending rupture on initial CT read. Patient declined transfer to [facility] for surgical management pending discussion ER provider. Patient aware that he can anytime from precarious condition. 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 Principal Diagnosis Abdominal aortic aneurysm with rupture/dissection Hospice comfort care Discharge Exam Constitutional + acute distress (Due to abdominal pain) and + ill appearing Eyes PERRL, conjunctivae normal, anicteric sclerae ENMT external ear and nose normal, oropharynx normal Neck trachea midline, no thyromegaly Respiratory normal respiratory effort, lungs clear to auscultation Cardiovascular RRR, no murmur, no edema Gastrointestinal (Abdomen) Percussion/Palpation: + abdomen tender and abdomen soft Musculoskeletal no cyanosis or clubbing, extremities motor strength 5/5 Skin no rashes, warm and dry Neurologic PERRL, EOMI, accommodation nl, no face palsy, no dysarthria Psychiatric A+Ox3, euthymic affect Discharge Data Allergies Allergy/AdvReac Type Severity Reaction Status Date / Time No Known Allergies Allergy Verified 10/22/02 17:44 Consultations 05/09/20 04:23 ED Decision to Admit Stat 05/09/20 06:09 Consult Case Management - Discharge Planning Routine 05/09/20 12:14 Consult Palliative Care Routine Ordered Studies 05/09/20 03:16 CT angio chest dissec wo/w con Urgent 05/09/20 03:17 CT angio abdomen pelvis w con Urgent Hospital Course (1) Aortic aneurysm: (2) Back pain: (3) Abdominal pain: Severe intractable abdominal pain: Due to large abdominal aortic aneurysm Admitted with worsening abdominal pain CTA abd/pelvis showed 9.0 x 9.5 cm aneurysm of the infrarenal abdominal aorta. Significant inflammatory stranding identified around the aneurysm sac that is highly concerning for impending rupture. There are also aneurysms of the common iliac arteries, the right internal iliac artery, and both common femoral arteries. There is aneurysmal dilatation of the ascending thoracic aorta which measures up to 4.7 cm in diameter. CTA chest showed thoracic aortic dissection. Per note by previous hospitalist: Refuses any heroic management or surgical intervention for the AAA repair He understands by refusing any AAA repair that the aneurysm can rupture and lead to Pt would like to transition to hospice once his pain control Agreed to transition to comfort measures if AAA rupture rupture while in the hospital palliative care on board Patient started on IV Dilaudid COPIER AND PRINTER FIELD TECHNICIAN pump Can be transitioned to IV morphine drip if patient's pain is unbearable with COPIER AND PRINTER FIELD TECHNICIAN pump or unable to use COPIER AND PRINTER FIELD TECHNICIAN pump for clinical decline but continues to have pain and discomfort Overall prognosis remains extremely poor Patient can during this hospital stay from AAA rupture (4) HTN (hypertension): Metoprolol 12.5 mg BID Antihypertensives will be discontinued as blood pressure drops below 100 or clinical decline 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 TEDS (SCDs contraindicated with PAD, pharmacologic anti coagulation contraindicated with AAA impending rupture) CODE STATUS DNR/DNI Disposition Patient is transition to comfort care only Discussed with palliative care patient meets criteria for inpatient hospice. Patient is discharged from medical service, admitted as inpatient hospice Total Time Total Time Spent Total Time Spent (In Minutes): 30 MINS Total Time Includes: Examination of the Patient, Discharge Planning and Medication Reconciliation Discharge Plan Discharge Items Patient Disposition: Hospice - Medical Facility Reason For Visit: HTN URGENCY Discharge Diagnosis: hospice /comfort care Abdominal aorta aneurysm dissection Activity: As commented below Activity Comment: as tolerated Non-emergency contact: Primary Care Provider Call non-emergency contact if: your symptoms worsen Follow-up/Referrals: Anali Zhong CRNP [Primary Care Provider] - Diet: Regular Addtl Attending Provider Instructions: PT IS END STAGE /TERMINAL WILL BE DISCHARGED FORM MEDICINE TO BE ADMITTED TO INPATIENT HOSPCIE Pending Studies at Discharge: No Stand-Alone Forms: [facility] Sk[facility] Items Patient informed of condition?: Yes DNR: Yes Discharge Level of Care: Other Communicable Disease: No Discharge Prognosis: Deteriorating Lines: Peripheral IV Urinary Catheter: No Medications and DC Order Prescriptions: Continued No Known Home Medications RF: 0 Discharge Orders: Discharge Order (Routine); Ordered 05/12/20 Ordered By: Ellie Cole Admission Data Admit Date/Time: 05/10/20 15:05 Attending Provider: Ellie Cole Admit Provider: Juan Daniel Mead Primary Care Provider: Anali Zhong Other Providers: [facility] ; Juan Daniel Mead ; Belem Clark
[2020-05-12] MEDS: HYDROmorphone PCA 30 MG/30 ML IV PRN (13:34)
--- NOTE | 2020-05-12 15:54 | History & Physical Report ---
Date of Service May 12, 2020 Assessment & Plan (1) Palliative care encounter: 1) Palliative care encounter: Patient is a 69-year-old male with a past medical history significant for hypertension, HLD, CAD-status post stent, CHF-EF 40 to 45% on echo done in'01, and known AAA who presented to the emergency room with abdominal pain. Scan showed a AAA with dimensions of 9.0 X 9.5 X 17 cm-with mural thrombus and evidence of impending rupture, patient refused surgical intervention. 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, Can be transitioned to morphine drip if clinical status worsens Patient is admitted to inpatient hospice care Admission and Anticipated Discharge Date Admission Date: May 10, 2020 History of Present Illness Primary Care Provider: Anali Zhong Allergies Allergy/AdvReac Type Severity Reaction Status Date / Time No Known Allergies Allergy Verified 10/22/02 17:44 Home Medications Home Medications Medication Instructions Recorded Confirmed Type No Known Home Medications 05/09/20 05/09/20 History Past Med/Surg History Medical History Aortic aneurysm Hyperlipidemia Surgical History History of heart artery stent Social History Smoking Status: Former smoker Hx Alcohol Use: No Hx Substance Use: No Preferred Language: Polish Communication Ability: Effective Line Patroller Required: No Beliefs That Will Affect Care: None marital status: Single Current Living Situation: Alone Feels Safe at Home: Yes Safety Concerns: Feels Safe At This Time Physical Exam Constitutional: + acute distress (Due to abdominal pain) and + ill appearing Eyes: PERRL, conjunctivae normal, anicteric sclerae ENMT: external ear and nose normal, oropharynx normal Neck: trachea midline, no thyromegaly Respiratory: normal respiratory effort, lungs clear to auscultation Cardiovascular: RRR, no murmur, no edema Gastrointestinal (Abdomen): Percussion/Palpation: + abdomen tender and abdomen soft Musculoskeletal: no cyanosis or clubbing, extremities motor strength 5/5 Skin: no rashes, warm and dry Neurologic: PERRL, EOMI, accommodation nl, no face palsy, no dysarthria Psychiatric: A+Ox3, euthymic affect
== END 2020-05-12 13:51 | disposition hospice, inpatient (51) | DRG 299 ==
LOC: 2W 02:43 → ED 02:43 → 2W 05:49 → SUATTDRO 05-10 15:05

== ENCOUNTER 2020-05-12 13:56 | Inpatient (IN) ==
--- NOTE | 2020-05-12 14:19 | Palliative Care Progress Note ---
Date of Service May 12, 2020 Assessment & Plan (1) Palliative care encounter: Patient is a 69-year-old male with a past medical history significant for hypertension, HLD, CAD-status post stent, CHF-EF 40 to 45% on echo done in', and known AAA who presented to the emergency room with abdominal pain. Scan showed a AAA with dimensions of 9.0 X 9.5 X 17 cm-with mural thrombus and evidence of impending rupture, patient refused surgical intervention. Patient voiced desire for pain control and then to return home with hospice for comfort. Patient also stated he had not thought he was going to make it out of the hospital-expects to from a ruptured aortic aneurysm. -Patient had been started on OxyContin 60 mg twice daily-increased to 3 times daily, was doing better until yesterday afternoon when he had excruciating increase in his abdominal low back pain-patient now on Dilaudid ADJUSTER PIANO ACTION -discussed increasing settings to a continuous rate of 0.5 mg with a bolus of 1 mg every 15 minutes as needed -Patient also has aneurysms in the bilateral iliac arteries, common iliac artery partially thrombosed within the aneurysm. -Scan showed densely calcified coronary arteries. -Patient is , no children. He has a father and his stepmother, his mother is . Patient would want his father and stepmother to make medical decisions if he were unable. -CODE STATUS is DNR -Constipation-may exacerbate abdominal pain, use PRN bowel meds as needed -Will continue to follow and assist with pain management, if we can get patient's pain under adequate control, may be able to get him home with hospice. PPS 50% (2) AAA (abdominal aortic aneurysm): (3) Back pain: (4) HTN (hypertension): Admission and Anticipated Discharge Date Admission Date: May 12, 2020 Subjective Patient seen and examined, collaborated with attending physician regarding pain management Patient had an episode of excruciating pain yesterday despite being on prior doses of OxyContin. Patient was started on a Dilaudid ADJUSTER PIANO ACTION last evening. Patient has required 8 bolus doses in the past 5 hours, pain still not well controlled-discussed with attending physician, will keep continuous rate for 0.5 mg, increase bolus dose to 1 mg. Monitor for excess sedation. Patient's severe increase in back and abdominal pain consistent with extension of his AAA. Patient is appropriate for [facility] hospice care. Discussed with attending as well as hospice agency, plan is to admit him GIP for pain control and impending rupture of AAA. Patient not somnolent on exam, awake and alert. Review of Systems Review of Systems: Patient denies fever, chills, chest pain, shortness of breath Positive for increased abdominal and low back pain Physical Exam Physical Exam: PE: Patient awake and alert, mild distress due to increasing back pain, sitting on the side of the bed. HEENT: EOMI, hearing within normal limits Respiratory: Clear breath sounds, unlabored CV: Regular rate, no edema Abdomen: Soft, tender midline to palpation Extremities: No edema, full range of motion Neuro: Normal strength, alert and oriented x4 PG Care Time/CCT Total # of Minutes Spent Total Time Spent with Patient: Total time spent 35 minutes with greater than 50% of the time spent at bedside assessing patient's current pain control as well as collaborating with attending physician Coding Level of Care Code 51288 Subseq Hosp Care Lvl 3 Diagnoses Palliative care encounter Z51.5 Time Spent (min) 35
[2020-05-12] MEDS ORDERED: ATROPINE SULFATE 1% OP SOLN 2 ML BTL SL PRN (15:10)
[2020-05-12] MEDS ORDERED: LORazepam 0.5 MG TAB PO PRN (15:10)
[2020-05-12] MEDS ORDERED: ONDANSETRON 4 MG OD TAB SL PRN (15:10)
[2020-05-12] MEDS ORDERED: ACETAMINOPHEN 325 MG TAB PO PRN (15:10)
[2020-05-12] MEDS ORDERED: PROMETHAZINE HCL 12.5 MG in SODIUM CHLORIDE 0.9% 50 ML IV PRN (15:10)
[2020-05-12] MEDS ORDERED: ONDANSETRON INJ 2 MG/ML 2 ML VIAL IV PRN (15:10)
[2020-05-12] MEDS ORDERED: NALOXONE HCL 0.4 MG/1 ML VIAL/CARP IV PRN (15:12)
[2020-05-12] MEDS: SODIUM CHLORIDE 0.9% 1000ML 1,000 ML IV SCH (15:39)
--- NOTE | 2020-05-12 15:56 | History & Physical Report ---
Date of Service May 12, 2020 Assessment & Plan (1) Palliative care encounter: Patient is a 69-year-old male with a past medical history significant for hypertension, HLD, CAD-status post stent, CHF-EF 40 to 45% on echo done in', and known AAA who presented to the emergency room with abdominal pain. Scan showed a AAA with dimensions of 9.0 X 9.5 X 17 cm-with mural thrombus and evidence of impending rupture, patient refused surgical intervention. 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 Patient was on comfort care with IV Dilaudid HARP ACTION ASSEMBLER Transitioned to inpatient hospice Continue IV Dilaudid via HARP ACTION ASSEMBLER pump, setting/dose increased for pain control If clinically declines, remains uncomfortable but not able to use HARP ACTION ASSEMBLER pump, will be transitioned to IV morphine drip Patient's overall prognosis remains very poor Allergies Allergy/AdvReac Type Severity Reaction Status Date / Time No Known Allergies Allergy Verified 10/22/02 17:44 Home Medications Home Medications Medication Instructions Recorded Confirmed Type No Known Home Medications 05/09/20 05/09/20 History Past Med/Surg History Medical History (Updated 05/09/20 @ 15:09 by Belem Clark MD) Aortic aneurysm Hyperlipidemia Surgical History History of heart artery stent Social History Smoking Status: Former smoker Hx Alcohol Use: No Hx Substance Use: No Preferred Language: [place] Communication Ability: Effective Pit Clerk Required: No Beliefs That Will Affect Care: None marital status: Single Current Living Situation: Alone Feels Safe at Home: Yes Safety Concerns: Feels Safe At This Time Review of Systems Review of Systems: All systems reviewed & are unremarkable except as noted in HPI & below Physical Exam Constitutional: + acute distress (Due to abdominal pain) and + ill appearing Eyes: PERRL, conjunctivae normal, anicteric sclerae ENMT: external ear and nose normal, oropharynx normal Neck: trachea midline, no thyromegaly Respiratory: no cough Auscultation: + diminished lung sounds Cardiovascular: RRR, no murmur, no edema Gastrointestinal (Abdomen): Percussion/Palpation: + abdomen tender (With pain radiating to back) Skin: no rashes, warm and dry Neurologic: PERRL, EOMI, accommodation nl, no face palsy, no dysarthria Psychiatric: A+Ox3, euthymic affect Results & Data Results & Data ([facility]) Vital Signs (Past 12 Hours) Vital Signs Temp Pulse Resp BP Pulse Ox 05/12/20 15:08 36.5 C 80 16 122/82 96
--- NOTE | 2020-05-12 16:47 | Communication Note ---
Date of Service: May 12, 2020 Repeat visit done in afternoon, to assess patient's pain control Patient is awake, says he had excruciating back pain 10 minutes ago, No pain is getting better after getting IV Dilaudid from BOTTOM SPRAYER pump button push Patient reports, pain subsides after getting IV Dilaudid, but wears off very quickly-leading to unbearable/excruciating pain Currently lockout time is every 15 minutes, gets 1 mg IV Dilaudid bolus with each button push, increase Baseline IV Dilaudid 1 mg/h continuous Reduce the lockout time to 10 minutes-which will allow him to get maximum 5 mg IV Dilaudid per hour Continue to titrate pain medication to provide comfort/palliative care Patient is currently inpatient hospice Ellie Cole MD
--- NOTE | 2020-05-12 16:52 | Communication Note ---
Date of Service: May 12, 2020 correction of document : -J-u-y-u-c-e- -t-h-e- -b-n-v-k-o-u-t- -t-i-m-e- -t-o- -1-0- - - -a-n-q-y-w-v-s----w-h-i-c-h- -w-i-l-l- -a-l-l-o-w- -h-i-m- -t-o- -g-e-t- -k-e-l-i-m-u-m- -5- - - -m-g- - - -I-V- -N-l-n-a-u-d-i-d- -p-e-r- -h-o-u-r- basal cont rate increased to 1 mg /hr will get 1 mg IV Dilaudid with each time button push Lock out time for BROADCAST SUPERVISOR remains at 15 mins maximum IV Dilaudid will be 5 mg /hr with current setting pt may need transition to IV Morphine gtt if pain remains uncontrolled with BROADCAST SUPERVISOR pump Ellie Cole MD
[2020-05-12] MEDS: HYDROmorphone PCA 30 MG/30 ML IV PRN (19:09)
[2020-05-12] MEDS: DOCUSATE SODIUM 100 MG CAP PO SCH (20:03)
[2020-05-13] MEDS: HYDROmorphone PCA 30 MG/30 ML IV PRN (06:02)
[2020-05-13] MEDS: LORazepam 0.5 MG/1 ML VIAL IV PRN ×2 (07:33→18:42)
[2020-05-13] MEDS ORDERED: ATROPINE SULFATE 1% OP SOLN 2 ML BTL SL PRN (08:12)
[2020-05-13] MEDS: DOCUSATE SODIUM 100 MG CAP PO SCH (08:12)
[2020-05-13] MEDS ORDERED: DOCUSATE SODIUM 100 MG CAP PO PRN (08:15)
[2020-05-13] MEDS ORDERED: MAGNESIUM CITRATE 296 ML/BTL PO PRN (08:15)
[2020-05-13] MEDS ORDERED: STAT IV Infusion **Titration per Protocol STA (08:15)
[2020-05-13] MEDS: HYDROmorphone/NSS 100 MG/100 ML BAG IV SCH (08:52)
[2020-05-13] MEDS ORDERED: MAGNESIUM CITRATE 296 ML/BTL PO SCH (09:00)
[2020-05-13] MEDS ORDERED: SCOPOLAMINE 1.5 MG TDSY TD SCH (09:00)
--- NOTE | 2020-05-13 09:27 | Communication Note ---
Date of Service: May 13, 2020 Referred by nursing, patient continued to have severe pain 9 out of 10 on IV Dilaudid ADJUSTER LEADER Discussed with pharmacy, Dilaudid ADJUSTER LEADER adjusted, increased basal dose to 2 mg/h, lockout time decreased to 5 minutes, patient will get a 2 mg bolus with every bottle and push Patient received IV Ativan earlier for being very anxious and restless Letter patient became unresponsive, slumped over age of the bed, came very diaphoretic, tachycardic Evaluate the patient, at bedside, unresponsive Extremities cold and clammy Possible imminent rupture of abdominal aortic aneurysm Change IV Dilaudid ADJUSTER LEADER to IV Dilaudid drip, titrate to comfort Called patient's family: Father and stepmother over phone, updated that patient is clinically declining, May in the next few hours Patient is DNR/DNI, under hospice inpatient care Prognosis is grim/terminal Family will come over and visit patient at bedside Ellie Cole MD
--- NOTE | 2020-05-13 15:38 | Hospitalist Progress Note ---
Date of Service May 13, 2020 Assessment & Plan (1) Palliative care encounter: Patient is a 69-year-old male with a past medical history significant for hypertension, HLD, CAD-status post stent, CHF-EF 40 to 45% on echo done in', and known AAA who presented to the emergency room with abdominal pain. Scan showed a AAA with dimensions of 9.0 X 9.5 X 17 cm-with mural thrombus and evidence of impending rupture-patient chose to be comfort care, transition to inpatient hospice as clinical decline noted, was on IV Dilaudid DISTRIBUTING CLERK for intractable abdominal and back pain Patient became unresponsive this morning, Possible cause, aortic dissection/rupture On IV Dilaudid drip, continue to titrate with any sign of discomfort Patient is having evidence of organ hypoperfusion, abdomen is distended and firm, extremities cyanotic mottling noted Family updated over phone Patient's elderly father, stepmother present at bedside, they understand and alert that patient is actively dying Appreciate current pain management, and comfort care Patient will very likely may in the next 24-48 hours due to abdominal aortic aneurysm dissection/rupture Continue palliative care Code status DNR DNI Admission and Anticipated Discharge Date Admission Date: May 12, 2020 Subjective Patient is currently on IV Dilaudid drip, Remains unresponsive, shallow breathing, extremities are cold and clammy Evidence of cyanosis, and mottling noted on lower extremities and torso Review of Systems Review of Systems: Unobtainable due to reduced consciousness Physical Exam Physical Exam: Limited exam for comfort care only: General: Unresponsive, with shallow breathing No apparent sign of distress, patient is continued with IV Dilaudid drip Family members, father and stepmother present at bedside Extremities: Cyanotic, mottling noted
[2020-05-13] MEDS: CHECK SCOPOLAMINE PATCH PLACEMENT SCH ×2 (16:08→23:41)
[2020-05-13] MEDS ORDERED: Nursing to Pharmacy Communication SCH (22:30)
[2020-05-14] MEDS: HYDROmorphone/NSS 100 MG/100 ML BAG IV SCH (03:07)
[2020-05-14] MEDS: SODIUM CHLORIDE 0.9% 1000ML 1,000 ML IV SCH (08:39)
[2020-05-14] MEDS: CHECK SCOPOLAMINE PATCH PLACEMENT SCH ×2 (08:40→15:42)
[2020-05-14] MEDS: LORazepam 0.5 MG/1 ML VIAL IV PRN ×2 (10:54→15:42)
--- NOTE | 2020-05-14 14:33 | Hospitalist Progress Note ---
Date of Service May 14, 2020 Assessment & Plan (1) Palliative care encounter: Comfort care/hospice On IV Dilaudid drip, Patient is a 69-year-old male with a past medical history significant for hypertension, HLD, CAD-status post stent, CHF-EF 40 to 45% on echo done in', and known AAA who presented to the emergency room with abdominal pain. Scan showed a AAA with dimensions of 9.0 X 9.5 X 17 cm-with mural thrombus and evidence of impending rupture-patient chose to be comfort care, transition to inpatient hospice as clinical decline noted, Patient remains unresponsive requiring higher dose of Dilaudid drip Evidence of hypoperfusion, extremities cyanotic with mottling, cold and clammy Abdomen is distended and firm Possible cause, aortic dissection/rupture Patient's elderly father, stepmother present at bedside, they understand and aware that patient is actively dying. They will update home information to nursing. Continue palliative care/pain controlled with IV Dilaudid, as needed IV Ativan for agitation, tremor Scopolamine patch ordered for increased oral secretions, Code status DNR DNI Admission and Anticipated Discharge Date Admission Date: May 12, 2020 Subjective Patient remains unresponsive, on IV Dilaudid drip, Patient is twitching noted Patient's family, father and stepmother present at bedside Was able to wake up this morning, ate a few bites of breakfast, then required higher dose of Dilaudid due to severe pain and discomfort dose was increased to 6 mg/h Extremity remains mottled, Overall prognosis grim Physical Exam Physical Exam: Limited exam for comfort care only: General: Unresponsive, with shallow breathing No apparent sign of distress, patient is continued with IV Dilaudid drip Family members, father and stepmother present at bedside Extremities: Cyanotic, mottling noted
--- NOTE | 2020-05-15 06:54 | Death Pronouncement Note ---
Date of Service May 15, 2020 Pronouncement Note Admission Date Admission Date: May 12, 2020 Date and Time of Date of : 05/14/20 Time of : 20:40 Contributing Factors (1) Palliative care encounter: Additional Data Confirmation of : no pulse, no respirations, no heart sounds and pupils fixed and dilated Family: contacted Attending physician: Ellie Cole MD
--- NOTE | 2020-05-15 09:23 | Discharge Summary ---
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 Transitioned to inpatient hospice Continue IV Dilaudid via SUB ASSEMBLY TEAM WORKER pump, setting/dose increased for pain control If clinically declines, remains uncomfortable but not able to use SUB ASSEMBLY TEAM WORKER pump, will be transitioned to IV morphine drip Patient's overall prognosis remains very poor Principal Diagnosis Patient Was inpatient hospice/comfort care Cause of , rupture of abdominal aortic aneurysm Discharge Exam Patient Please see note done by pronouncing physician Discharge Data Allergies Allergy/AdvReac Type Severity Reaction Status Date / Time No Known Allergies Allergy Verified 10/22/02 17:44 Consultations 05/12/20 15:10 Consult Case Management - Discharge Planning Routine Hospital Course (1) Palliative care encounter: Patient is a 69-year-old male with a past medical history significant for hypertension, HLD, CAD-status post stent, CHF-EF 40 to 45% on echo done in'01, and known AAA who presented to the emergency room with abdominal pain. Scan showed a AAA with dimensions of 9.0 X 9.5 X 17 cm-with mural thrombus and evidence of impending rupture-patient chose to be comfort care, transition to inpatient hospice as clinical decline noted, Patient remained unresponsive requiring higher dose of Dilaudid drip Evidence of hypoperfusion, extremities cyanotic with mottling, cold and clammy Abdomen was distended and firm Possible cause, aortic dissection/rupture Patient's elderly father, stepmother where present at bedside, they state and aware that patient is actively dying. They updated home information to nursing. Patient was continued with palliative care/pain controlled with IV Dilaudid, as needed IV Ativan for agitation, tremor Scopolamine patch ordered for increased oral secretions, Code status DNR DNI Patient while on comfort care: As per pronouncing on-call hospitalist: Date of : 05/14/20 Time of : 20:40 Contributing Factors (1) Palliative care encounter: Rupture/dissection of large abdominal aortic aneurysm Additional Data Confirmation of : no pulse, no respirations, no heart sounds and pupils fixed and dilated Family: Father and stepmother contacted over phone, Total Time Total Time Spent Total Time Spent (In Minutes): Patient Total Time Includes: Other (Date certificate) Discharge Plan Discharge Items Patient Disposition: Discharge Diagnosis: Hospice/palliative care Rupture/dissection of large epidural effort aneurysm Addtl Attending Provider Instructions: Patient while on comfort care hospice
== END 2020-05-14 23:15 | disposition expired | DRG 951 ==
LOC: 2W 13:56